=== PATIENT | female | born 1980 ===

== ENCOUNTER 2019-09-18 02:36 | Emergency (ER) | payer OTHER ==
[~2019-09-18] VITALS: Ht 160 cm; Wt 64.5 kg
[2019-09-18 02:50] VITALS: BP 131/71
== END 2019-09-18 03:15 | disposition left against medical advice (07) ==
LOC: EMS 02:39
DX: M79.673 Pain in unspecified foot (principal); Z53.21 Procedure and treatment not carried out due to patient leaving prior to being seen by health care provider